=== PATIENT | female | born 1960 | race Caucasian/White ===

== ENCOUNTER 2017-04-28 16:16 | Emergency (ER) | payer OTHER ==
[~2017-04-28] VITALS: Ht 167.6 cm; Wt 78.5 kg
[~2017-04-28 16:16] MED LIST: AMITRIPTYLINE H10 MG PO; ASPIR 8181 MG PO; BENTYL20 MG PO; DIAZEPAM5 MG PO; FLAGYL500 MG PO; GABAPENTIN100 MG PO; METOPROLOL TART50 MG PO; NEXIUM20 MG PO; NEXIUM40 MG PEG; NORCO 10-325 T1 EACH PO; OXYBUTYNIN CHLOR5 MG PO; PRAVASTATIN SOD40 MG PO; TIZANIDINE HCL4 MG PO; ZOFRAN ODT4 MG; ZOFRAN4 MG PO
--- OUTSIDE RECORDS SUMMARY | 2017-04-28 16:20 | XMS REPORT ---
Author Author [facility] Address Unknown Phone Unavailable Care Team Providers Care Chemical Radiation Technician Name Role Phone FABIAN TORRES Unavailable Unavailable Problems This patient has no known problems. Allergies, Adverse Reactions, Alerts This patient has no known allergies or adverse reactions. Medications This patient has no known medications. Results Test Description Test Time Test Comments Text Results Atomic Results Result Comments PELVIS AP 1-2 VIEWS [place] [address] Patient Name: MARINA MYRICK MR #: [id number] : 1960 Age/Sex: 56/F Req #: [id number] [facility] Physician: Ordered by: FELISHA NUR SMELTING ENGINEER Report # : [id number] Location: ER Room/Bed: Procedure: 0928 -[id number] DX/PELVIS AP 1-2 VIEWS Exam Date: 12/24/16 Exam Time: 1450 REPORT STATUS: Signed PROCEDURE: X-RAY PELVIS, AP VIEW COMPARISON: None. INDICATIONS: PAINFUL TO WALK, PAIN IN PELVIS FINDINGS: Normal mineralization. No acute, displaced fractures or dislocations. Sacral arches are preserved. Joint spaces are well-preserved. Pelvic phleboliths. Soft tissues are otherwise unremarkable. CONCLUSION: No acute abnormalities. Celestino Carr M.D. Dictated by: Celestino Carr M.D. on 12/24/2016 at 15:43 Electronically approved by: Celestino Carr M.D. on 12/24/2016 at 15:43 Dictated By: CELESTINO CARR MD 42 Transcribed By: HASMUKH on 12/24/161542 COPY TO: FELISHA NUR NP SACRUM COCCYX [place] [address] Patient Name: MARINA MYRICK MR #: [id number] : 1960 Age/Sex: 56/F Req #: [id number] [facility] Physician: Ordered by: FELISHA NUR NP Report # : [id number] Location: ER Room/Bed: Procedure: 0928 -0059 DX/SACRUM COCCYX Exam Date: 12/24/16 Exam Time: 1450 REPORT STATUS: Signed PROCEDURE: SACRUM T COCCYX INDICATION: Pain, lower back, painful to walk COMPARISON: [facility], CT, CT ABDOMEN/PELVIS W, 04/30/2016, 13:14. FINDINGS: Normal mineralization. No acute, displaced fracture or dislocation. Sacral arches are preserved. Facet hypertrophy. L5-S1. No lytic or blastic lesions. Pelvic phleboliths. Visualized joints are grossly unremarkable. CONCLUSION: 1. No acute abnormalities. 2. Facet hypertrophy. L5- S1. Celestino Carr M.D. Dictated by: Celestino Carr M.D. on 12/24/2016 at 15:45 Electronically approved by: Celestino Carr M.D. on 12/24/2016 at 15:45 Dictated By: CELESTINO CARR MD 1545 Transcribed By: HASMUKH on 12/24/16 154 COPY TO: FELISHA NUR NP CHEST 2 VIEWS [place] [address] Patient Name: MARINA MYRICK MR #: [id number] : 1960 Age/Sex: 56/F Req #: [id number] Adm Physician: Ordered by: FABIAN TORRES MD Report #: [id number] Location: ER Room/Bed: Procedure: [id number] 0042 DX/CHEST 2 VIEWS Exam Date: 12/24/16 Exam Time : 1245 REPORT STATUS: Signed PROCEDURE: CHEST 2 VIEWS TECHNIQUE: PA and lateral chest INDICATION: Cough COMPARISON: None. FINDINGS : Paucity of interstitial markings in the upper lung zones with mild symmetric hyperinflation. No focal airspace disease. No pleural effusions. Normal heart size. Intact skeleton. Cervical spine fusion hardware. CONCLUSION: Emphysema. No evidence of pneumonia. Dictated by: Jodee Selby M.D. on 12/24/2016 at 14:00 Electronically approved by : Jodee Selby M.D. on 12/24/2016 at 14:00 Dictated By : JODEE SELBY MD 1400 Transcribed By: HASMUKH on 12/24/16 1400 COPY TO: FABIAN TORRES MD [facility] RIGHT COMPLETE [place] [address] Patient Name: MARINA MYRICK MR #: [id number] : 1960 Age/Sex: 56/F Req #: [id number] Adm Physician: Ordered by: FABIAN TORRES MD Report #: [id number] Location: ER Room/Bed: Procedure: [id number] 0034 DX/FOOT RIGHT COMPLETE Exam Date: 12/24/16 Exam Time: 1245 REPORT STATUS: Signed PROCEDURE: FOOT RIGHT COMPLETE TECHNIQUE: AP, lateral and oblique views left foot INDICATION: Hit left foot COMPARISON: None. FINDINGS: The left foot is intact and in anatomic alignment. Joint spaces are normal. Regional soft tissues are normal. No foreign bodies. CONCLUSION: No acute abnormality. Dictated by: Jodee Selby M.D. on 12/24/2016 at 13:59 Electronically approved by: Jodee Selby M.D. on 12/24/2016 at 13:59 Dictated By: JODEE SELBY MD 3444 Transcribed By: HASMUKH on 12/24/16 1350 COPY TO: FABIAN TORRES MD
[2017-04-28] MEDS ORDERED: ONDANSETRON HCL INJ 2 MG/ML VIAL IV STA (16:22)
[2017-04-28] MEDS ORDERED: SODIUM CHLORIDE 0.9% 1000ML 1,000 ML IV STA (16:22)
[2017-04-28] MEDS ORDERED: DIATRIZOATE MEGL/DIATRIZOA SOD 30 ML BTL PO ONE (17:04)
--- NOTE | 2017-04-28 18:16 | Diagnostic Imaging Report ---
PROCEDURE: A single AP view of the chest. COMPARISON: Chest radiograph 09/08/2016 INDICATIONS: ABDOMINAL PAIN, NAUSEA FINDINGS: Lines/tubes: None. Lungs: The lungs are well inflated and clear. There is no evidence of pneumonia or pulmonary edema. Pleura: There is no pleural effusion or pneumothorax. Heart and mediastinum: The heart and the mediastinum are unremarkable. Bones: No acute bony abnormality. Partially visualized lower cervical fusion hardware. Upper abdomen: No free air under the diaphragm. IMPRESSION: No acute cardiopulmonary disease. Dictated by: Mahamed Dawson M.D. on 04/28/2017 at 18:25 Electronically approved by: Mahamed Dawson M.D. on 04/28/2017 at 18:25
[2017-04-28] MEDS ORDERED: ONDANSETRON HCL INJ 2 MG/ML VIAL ONE (22:09)
[2017-04-28] MEDS ORDERED: SODIUM CHLORIDE 0.9% 1000ML 1,000 ML ONE (22:09)
[2017-04-28 22:17] LABS: BILIRUBIN,URINE NEGATIVE (NEGATIVE); CLARITY,URINE CLEAR (CLEAR); COLOR,URINE YELLOW (YELLOW); KETONES,URINE NEGATIVE (NEGATIVE); LEUKOCYTE ESTERASE ,URINE NEGATIVE (NEGATIVE); NITRITE,URINE NEGATIVE (NEGATIVE); PROTEIN,URINE DIPSTICK NEGATIVE (NEGATIVE); URINE UROBILINOGEN 0.2 mg/dL (0.2 - 1)
[2017-04-28 22:17] LABS: BASOPHILS % 0.6 % (0.0-1.0); EOSINOPHILS # (AUTO) 0.1 (0.0-0.4); EOSINOPHILS % 1.9 % (0.0-6.0); HEMATOCRIT 40.3 % (34.2-44.1); HEMOGLOBIN 12.7 g/dL (12.0-16.0); LYMPHOCYTES # (AUTO) 2.2 (1.0-3.2); LYMPHOCYTES % 34.9 % (18.0-39.1); MEAN CORPUSCULAR HEMOGLOBIN 29.3 pg (28-32); MEAN CORPUSCULAR HGB CONC 31.5 g/dL (31-35); MEAN CORPUSCULAR VOLUME 92.9 fL (81-99); MONOCYTES # (AUTO) 0.7 (0.2-0.8); MONOCYTES % 10.8 % (4.4-11.3); NEUTROPHILS # (AUTO) 3.2 (2.1-6.9); PLATELET COUNT 299 x10e3/uL (140-360); RED BLOOD COUNT 4.34 x10e6/uL (3.6-5.1); RED CELL DISTRIBUTION WIDTH 14.1 % (11.7-14.4)
[2017-04-28 22:19] LABS: EPITHELIAL CELLS,URINE FEW /LPF; MUCUS,URINE FEW (RARE); RBC,URINE 0-5 /HPF (0-5); WBC,URINE (MAN) 0-5 /HPF (0-5)
[2017-04-28 22:23] LABS: INR 0.86; PROTHROMBIN TIME 12.1 seconds (11.9-14.5)
[2017-04-28 22:24] LABS: PARTIAL THROMBOPLASTIN TIME 31.6 seconds (23.8-35.5)
[2017-04-28 22:33] LABS: ALANINE AMINOTRANSFERASE 33 IU/L (0-55); ALBUMIN 3.8 g/dL (3.5-5.0); ALBUMIN/GLOBULIN RATIO 0.9 (0.8-2.0); ALKALINE PHOSPHATASE 117 IU/L (40-150); ANION GAP 13.6 mmol/L (8-16); BLOOD UREA NITROGEN 8 mg/dL (7-26); BUN/CREATININE RATIO 10 (6-25); CALCIUM 9.4 mg/dL (8.4-10.2); CARBON DIOXIDE 30 mmol/L (22-29); CHLORIDE 101 mmol/L (98-107); CREATINE KINASE 30 IU/L (29-168); CREATININE, SERUM 0.77 mg/dL (0.57-1.11); EST GLOMERULAR FILTRATION RATE > 60 ML/MIN (60-); GLUCOSE 93 mg/dL (74-118); POTASSIUM 4.6 mmol/L (3.5-5.1); SODIUM 140 mmol/L (136-145)
[2017-04-28 22:52] LABS: THYROID STIMULATING HORMONE 2.331 uIU/mL (0.350-4.940); TROPONIN I < 0.001 ng/mL (0-0.300)
[2017-04-28] MEDS ORDERED: IOPAMIDOL 370 MG/ML 200 ML INFUS..BTL INJ ONE (23:12)
[2017-04-28] MEDS ORDERED: SODIUM CHLORIDE 0.9% 50ML 50 ML ONE (23:12)
--- NOTE | 2017-04-28 23:42 | Diagnostic Imaging Report ---
EXAM: CT ABDOMEN AND PELVIS with IV CONTRAST DATE: 04/28/2017 4:46 PM Time stamp on Exam: 2316 hours INDICATION: Lower abdominal pain, nausea, vomiting, diarrhea COMPARISON: None TECHNIQUE: The abdomen and pelvis were scanned using a multidetector helical scanner. Coronal and sagittal reformations were obtained. Routine protocol performed. IV Contrast: 100 cc Isovue-370 Oral Contrast: Gastrografin CTDIvol has been reviewed. It is below the limits set by the Radiation Protocol Committee (RPC). FINDINGS: LOWER THORAX: No consolidations. Right lower lobe paraseptal blebs. LIVER: No masses BILIARY: The gallbladder is unremarkable. No ductal dilation. SPLEEN: No masses PANCREAS: Fatty replacement of the head. ADRENALS: No nodules KIDNEYS: Symmetric perfusion. No enhancing masses. No hydronephrosis. GI TRACT: No distention, wall thickening or evidence of obstruction. Small sliding hiatal hernia. No evidence of appendicitis. VESSELS: Mild atherosclerotic changes of the abdominal aorta without aneurysm. PERITONEUM/RETROPERITONEUM: No free air or fluid LYMPH NODES: No lymphadenopathy REPRODUCTIVE ORGANS: The uterus and ovaries are not visualized. BLADDER: Unremarkable SOFT TISSUES: Unremarkable BONES: No suspicious bone lesions. IMPRESSION: No acute findings. No bowel obstruction. Signed by: Dr. Carole Ann M.D. on 04/28/2017 11:38 PM
[2017-04-29 00:32] VITALS: BP 114/64
== END 2017-04-29 00:49 | disposition home or self-care (01) ==
LOC: ER 16:16
DX: R11.2 Nausea with vomiting, unspecified (principal); R10.33 Periumbilical pain; R10.32 Left lower quadrant pain; R10.31 Right lower quadrant pain; I10 Essential (primary) hypertension; J44.9 Chronic obstructive pulmonary disease, unspecified; M79.7 Fibromyalgia; K21.9 Gastro-esophageal reflux disease without esophagitis
CPT/HCPCS: 36415; 71010; 74177; 80053; 81001; 82550; 82553; 83880; 84443; 84484; 85025; 85610; 85730; 87086; 87400; 99284; J2405; J7030; Q9967; 71045

== ENCOUNTER 2018-09-10 13:51 | Observation (INO) | payer OTHER ==
[~2018-09-10] VITALS: Ht 167.6 cm; Wt 60.8 kg
[2018-09-10] MEDS ORDERED: MECLIZINE HCL 12.5 MG TAB PO NR (14:00)
[2018-09-10] MEDS ORDERED: SODIUM CHLORIDE 0.9% 1000ML 1,000 ML IV STA (14:00)
--- NOTE | 2018-09-10 14:15 | NUR ---
pt just stated, "i smoke weed at home for nausea." last time she smoked was yesterday. celsa wheeler np and dr. guerrero informed
[2018-09-10 14:36] LABS: BASOPHILS % 0.6 % (0.0-1.0); EOSINOPHILS # (AUTO) 0.1 (0.0-0.4); EOSINOPHILS % 2.1 % (0.0-6.0); HEMATOCRIT 37.8 % (34.2-44.1); HEMOGLOBIN 12.2 g/dL (12.0-16.0); LYMPHOCYTES # (AUTO) 1.9 (1.0-3.2); LYMPHOCYTES % 41.1 % (18.0-39.1); MEAN CORPUSCULAR HEMOGLOBIN 30.9 pg (28-32); MEAN CORPUSCULAR HGB CONC 32.3 g/dL (31-35); MEAN CORPUSCULAR VOLUME 95.7 fL (81-99); MONOCYTES # (AUTO) 0.6 (0.2-0.8); MONOCYTES % 12.1 % (4.4-11.3); NEUTROPHILS # (AUTO) 2.1 (2.1-6.9); NEUTROPHILS % 43.9 % (38.7-80.0); PLATELET COUNT 192 x10e3/uL (140-360); RED BLOOD COUNT 3.95 x10e6/uL (3.6-5.1); RED CELL DISTRIBUTION WIDTH 12.6 % (11.7-14.4)
--- NOTE | 2018-09-10 14:41 | Diagnostic Imaging Report ---
Exam: Head CT without contrast History: General weakness, dizziness Comparison studies: None Technique: Axial images were obtained from the skull base to the vertex. Coronal and sagittal images reconstructed from the axial data. Dose modulation, iterative reconstruction, and/or weight based adjustment of the mA/kV was utilized to reduce the radiation dose to as low as reasonably achievable. Radiation dose: Total DLP: ... mGy*cm. Estimated effective dose: DLP x 0.015 Intravenous contrast: None Findings: Scalp: No abnormalities. Bones: No fractures, blastic or lytic lesions. Brain sulci: Appropriate for age. Ventricles: Normal in size and configuration. No hydrocephalus. Extra-axial spaces: No masses, no fluid collection. Parenchyma: No abnormal densities. No masses, acute hemorrhage, acute or chronic vascular insults. Sellar/suprasellar region: No abnormalities. Craniocervical junction: Patent foramen magnum. No Chiari one malformation. Included paranasal sinuses: Clear. Middle ear mastoid cavities: Clear. Incidental findings: Atherosclerotic calcifications in the carotid siphons. IMPRESSION: No acute intracranial abnormalities. Signed by: Dr. Chente Andersen M.D. on 09/10/2018 2:37 PM
--- NOTE | 2018-09-10 14:48 | NUR ---
pt requesting pain medication for head/neck pain. celsa wheeler,formula checker informed
[2018-09-10 15:18] LABS: ALANINE AMINOTRANSFERASE 14 IU/L (0-55); ALBUMIN 3.6 g/dL (3.5-5.0); ALBUMIN/GLOBULIN RATIO 1.1 (0.8-2.0); ALKALINE PHOSPHATASE 82 IU/L (40-150); ANION GAP 13.9 mmol/L (8-16); BLOOD UREA NITROGEN 7 mg/dL (7-26); BUN/CREATININE RATIO 9 (6-25); CALCIUM 9.6 mg/dL (8.4-10.2); CARBON DIOXIDE 30 mmol/L (22-29); CHLORIDE 103 mmol/L (98-107); CREATINE KINASE 45 IU/L (29-168); CREATININE, SERUM 0.78 mg/dL (0.57-1.11); EST GLOMERULAR FILTRATION RATE > 60 ML/MIN (60-); GLUCOSE 77 mg/dL (74-118); POTASSIUM 3.9 mmol/L (3.5-5.1); SODIUM 143 mmol/L (136-145)
[2018-09-10 16:02] LABS: BILIRUBIN,URINE NEGATIVE (NEGATIVE); CLARITY,URINE CLOUDY (CLEAR); COLOR,URINE YELLOW (YELLOW); KETONES,URINE NEGATIVE (NEGATIVE); LEUKOCYTE ESTERASE ,URINE NEGATIVE (NEGATIVE); NITRITE,URINE NEGATIVE (NEGATIVE); PROTEIN,URINE DIPSTICK NEGATIVE (NEGATIVE); URINE UROBILINOGEN 0.2 mg/dL (0.2 - 1)
[2018-09-10 16:03] LABS: PREGNANCY TEST, URINE NEGATIVE (NEGATIVE)
[2018-09-10 16:06] LABS: AMPHETAMINES SCREEN,URINE NEGATIVE (NEGATIVE); PHENCYCLIDINE SCREEN,URINE NEGATIVE (NEGATIVE)
[2018-09-10 16:07] LABS: BENZODIAZEPINES SCREEN,URINE POSITIVE (NEGATIVE)
[2018-09-10 16:21] LABS: ACETAMINOPHEN < 3 ug/mL (10-30); SALICYLATE < 5.0 mg/dL (0-30)
[2018-09-10 16:24] LABS: BACTERIA,URINE RARE /HPF; WBC,URINE (MAN) 0-5 /HPF (0-5)
[2018-09-10 16:25] LABS: AMORPHOUS SEDIMENT,URINE MANY (FEW); EPITHELIAL CELLS,URINE RARE /LPF
[2018-09-10] MEDS ORDERED: ONDANSETRON HCL INJ 2MG/ML 2ML 2 MG/ML VIAL IV NR (16:30)
[2018-09-10] MEDS ORDERED: ASPIRIN 325 MG TAB EC PO NR (17:15)
[2018-09-10] MEDS ORDERED: ONDANSETRON HCL INJ 2MG/ML 2ML 2 MG/ML VIAL IV PRN (17:15)
[2018-09-10] MEDS ORDERED: SODIUM CHLORIDE 0.9% 1000ML 1,000 ML IV ONE (17:15)
--- NOTE | 2018-09-10 17:46 | NUR ---
RECEIVED REPORT FROM REUBEN IN ER. AWAITING FOR PT TO ARRIVE TO FLOOR
[2018-09-10] MEDS: HYDROCODONE/APAP 10MG-325MG TAB PO PRN ×2 (18:00→22:15)
[2018-09-10] MEDS ORDERED: NAMENDA10 MG (18:10)
[2018-09-10] MEDS ORDERED: ARICEPT5 MG PO (18:10)
[2018-09-10] MEDS ORDERED: PANTOPRAZOLE SO40 MG PO (18:10)
[2018-09-10] MEDS ORDERED: SOMA350 MG PO (18:10)
[2018-09-10] MEDS ORDERED: TYLENOL WITH C1 EAC1 (18:10)
[2018-09-10] MEDS ORDERED: CARVEDILOL3.125 MG PO (18:10)
[2018-09-10] MEDS ORDERED: CETIRIZINE HCL10 MG (18:10)
[2018-09-10] MEDS ORDERED: ULTRAM 50MG50 MG PO (18:10)
[2018-09-10] MEDS ORDERED: AMITRIPTYLINE H25 MG PO (18:10)
--- NOTE | 2018-09-10 19:30 | Diagnostic Imaging Report ---
MRI BRAIN WO HISTORY: General weakness, ataxia COMPARISON: Head CT 09/10/2018 TECHNIQUE: Sagittal T2, axial T2, axial T1, axial T2/FLAIR, axial gradient echo (or susceptibility weighted), coronal T2/FLAIR, and axial diffusion weighted MR images of the brain were obtained without contrast. DISCUSSION: Scalp/bone marrow: Unremarkable. Brain sulci: Appropriate for patient's age. Ventricles: Normal in size and configuration. No hydrocephalus. Extra-axial spaces: No masses or fluid collections. Parenchyma: A few small T2/FLAIR hyperintense foci in the right ferris radiata are likely chronic microvascular ischemic changes. Otherwise, no mass, hemorrhage, or acute vascular insults. Vessels: Normal flow voids in major arteries and veins. Sellar/Suprasellar region: No abnormalities. Craniocervical junction: No abnormalities. Incidental findings: ACDF changes at C4 are partially visualized. IMPRESSION: 1. No acute intracranial abnormalities. 2. Minimal supratentorial chronic microvascular ischemic change. Signed by: Dr. Adeel Dickerson M.D. on 09/10/2018 7:27 PM
[2018-09-10 19:44] VITALS: BP 117/68
--- NOTE | 2018-09-10 19:50 | NUR ---
Patient received via stretcher from ER. AAO x 3. Admission history obtained . Initial Physical assessment performed. Patient had complaints of pain ( 4/10) to the back region of her neck. Medication would be administered per eMAR. IVF infusing at 100 cc/hr. Patient oriented to room , call light and plan of care. Patient instructed to call for assistance when needed and whenever she wants to go to the bathroom. Patient verbalized understanding. Fall precautions implemented. Call light within reach.
[2018-09-10 20:00] VITALS: BP 117/68
[2018-09-10] MEDS ORDERED: ATORVASTATIN CA20 MG PO (20:37)
[2018-09-11] VITALS (9 sets, daily range): BP systolic 96–125; BP diastolic 52–63
--- NOTE | 2018-09-11 01:00 | NUR ---
Blood specimen sent to lab for analysis of cardiac enzymes.
[2018-09-11] MEDS: HYDROCODONE/APAP 10MG-325MG TAB PO PRN ×4 (04:33→19:35)
[2018-09-11 05:35] LABS: CREATINE KINASE MB 0.3 ng/mL (0-5.0)
[2018-09-11 05:41] LABS: BASOPHILS % 0.5 % (0.0-1.0); EOSINOPHILS # (AUTO) 0.1 (0.0-0.4); EOSINOPHILS % 2.4 % (0.0-6.0); HEMATOCRIT 34.2 % (34.2-44.1); HEMOGLOBIN 11.1 g/dL (12.0-16.0); LYMPHOCYTES # (AUTO) 1.7 (1.0-3.2); LYMPHOCYTES % 46.6 % (18.0-39.1); MEAN CORPUSCULAR HEMOGLOBIN 31.1 pg (28-32); MEAN CORPUSCULAR HGB CONC 32.5 g/dL (31-35); MEAN CORPUSCULAR VOLUME 95.8 fL (81-99); MONOCYTES # (AUTO) 0.4 (0.2-0.8); MONOCYTES % 10.6 % (4.4-11.3); NEUTROPHILS # (AUTO) 1.5 (2.1-6.9); NEUTROPHILS % 39.6 % (38.7-80.0); PLATELET COUNT 164 x10e3/uL (140-360); RED BLOOD COUNT 3.57 x10e6/uL (3.6-5.1); RED CELL DISTRIBUTION WIDTH 12.5 % (11.7-14.4)
[2018-09-11 06:05] LABS: ALANINE AMINOTRANSFERASE 11 IU/L (0-55); ALBUMIN/GLOBULIN RATIO 1.2 (0.8-2.0); ALKALINE PHOSPHATASE 71 IU/L (40-150); ANION GAP 10.4 mmol/L (8-16); BLOOD UREA NITROGEN 6 mg/dL (7-26); BUN/CREATININE RATIO 8 (6-25); CARBON DIOXIDE 27 mmol/L (22-29); CHLORIDE 108 mmol/L (98-107); CREATININE, SERUM 0.71 mg/dL (0.57-1.11); EST GLOMERULAR FILTRATION RATE > 60 ML/MIN (60-); GLUCOSE 86 mg/dL (74-118); POTASSIUM 4.4 mmol/L (3.5-5.1); SODIUM 141 mmol/L (136-145)
--- NOTE | 2018-09-11 06:44 | NUR ---
Walking rounds done. Shift report given to oncoming nurse.
--- NOTE | 2018-09-11 07:33 | NUR ---
RECEIVED PATIENT RESTING IN BED NO SIGNS OF DISTRESS AT THIS TIME. BED LOW, WHEELS LOCKED, SIDE RAILS X2. CALL LIGHT IN REACH WILL CONTINUE TO MONITOR PATIENT.
[2018-09-11] MEDS: ASPIRIN 81 MG ENTERIC COATED PO SCH (08:29)
[2018-09-11 09:26] LABS: CREATINE KINASE 41 IU/L (29-168)
[2018-09-11] MEDS ORDERED: ACETAMINOPHEN 325 MG TAB PO PRN (09:45)
[2018-09-11] MEDS ORDERED: HYDRALAZINE HCL 20 MG/ML VIAL IV PRN (09:45)
--- NOTE | 2018-09-11 09:45 | NUR ---
PATIENT A/O X3, EVEN RESPIRATIONS ON RA. BOWEL SOUNDS ACTIVE, SKIN INTACT, NO EDEMA. PATIENT AMBULATES WITH ASSISTANCE. LEFT AC 20 GAUGE IV WITH IVF @ 125 CC/HR. VITAL SIGNS STABLE NO SIGNS OF DISTRESS. CALL LIGHT WITHIN REACH. WILL CONTINUE TO MONITOR PATIENT.
[2018-09-11] MEDS: AMITRIPTYLINE HCL 25 MG TAB PO SCH ×2 (10:00→17:38)
[2018-09-11] MEDS: TIZANIDINE HCL 4 MG TAB PO SCH ×3 (10:23→21:19)
[2018-09-11] MEDS: DIAZEPAM 5 MG TAB PO SCH (10:23)
[2018-09-11] MEDS: OXYBUTYNIN CHLORIDE 5 MG TAB PO SCH ×2 (10:23→17:33)
[2018-09-11] MEDS: PANTOPRAZOLE SOD 40 MG TABEC PO SCH (10:23)
[2018-09-11] MEDS: MEMANTINE 10 MG TAB PO SCH (10:23)
[2018-09-11] MEDS: GABAPENTIN 100 MG CAP PO SCH ×3 (10:23→21:19)
[2018-09-11] MEDS: CARVEDILOL 3.125 MG TAB PO SCH ×2 (10:23→16:22)
[2018-09-11] MEDS: METHYLPREDNISOLONE SOD SUCC 125 MG/2ML VIAL IV SCH ×2 (14:11→21:10)
[2018-09-11] MEDS: SODIUM CHLORIDE 0.9% 1000ML 1,000 ML IV SCH ×2 (14:11→22:00)
[2018-09-11] MEDS: PROMETHAZINE 25MG/ NS 50ML (IV) IV SCH ×2 (14:11→21:00)
[2018-09-11] MEDS: VALPROATE SOD INJ 500 MG in SODIUM CHLORIDE 0.9% 100 ML 100 ML IV SCH ×2 (14:50→19:43)
[2018-09-11] MEDS: DONEPEZIL HCL 5 MG TAB PO SCH (21:19)
[2018-09-11] MEDS: ATORVASTATIN 20 MG TAB PO SCH (21:19)
--- NOTE | 2018-09-11 21:55 | NUR ---
Assessment done.no resp.distress.pain voiced 10/05.pain medication given.voided in the bed side commode.iv left ac is patent.bed locked and in lowest position.phone and call light within reach.informed to call for assistance as needed.
--- NOTE | 2018-09-11 22:29 | Consultation ---
DATE OF CONSULTATION: 09/11/2018 Neurology Consult Note HISTORY OF PRESENT ILLNESS: Ms. Carrillo is a 57-year-old right-hand dominant woman with past medical history significant for hypertension, hyperlipidemia, chronic pain secondary to osteoarthritis, and a prior history of migraines, admitted to [facility] on September 10, 2018, with a severe headache and vertigo. The Neurology Service is consulted for recommendations regarding further evaluation and treatment of status migrainosus. Ms. Carrillo describes her headache as follows. The pain begins over the back of the neck and radiates anteriorly to the retro-orbital region. The pain is described as pounding and is rated as 9/10. Associated with the headache are photophobia, phonophobia, and dizziness, which is further described as a vertiginous sensation, especially with moving towards the right. The patient does not report an aura, nausea, or vomiting, visual disturbance, dysarthria, aphasia, weakness, numbness, tingling, poor balance, impairment of gait, or worsening confusion associated with the headache. The headache as described above began approximately 3 days ago. The associated symptoms began at the same time with the exception of vertigo, which began approximately 12 hours after the other symptoms. Ms. Carrillo has taken multiple oral medications over the past 3 days in an effort to assuage her headache. Some medications the patient has taken include: Tylenol No. 3, Galvin, Soma, Advil, Aleve, and Tylenol Extra Strength. The patient reports no improvement in any of her symptoms with any of these medications. Ms. Carrillo does endorse a prior history of migraines. However, this is the first migraine she has experienced in "a long time." Ms. Carrillo is not taking a prophylactic medication for the prevention of migraines. The patient does have a prescription for amitriptyline 50 mg by mouth at bedtime daily, but this is for chronic insomnia. REVIEW OF SYSTEMS: Memory impairment (chronic), confusion (chronic), neck pain (chronic), headache, photophobia, phonophobia, and dizziness, which is further described as a vertiginous sensation. PAST MEDICAL HISTORY: Hypertension, hyperlipidemia, osteoarthritis, prior history of migraines, dementia, degenerative disk disease with chronic pain in the cervical spine. PAST SURGICAL HISTORY: Cervical spine fusion, right knee surgery, right ulnar nerve transposition, right carpal tunnel release, hysterectomy with appendectomy. PAST HOSPITALIZATIONS: Surgeries/procedures as listed, numerous hospitalizations. FAMILY MEDICAL HISTORY: Unknown. SOCIAL HISTORY: Ms. Carrillo is . She has been on disability since 1990. The patient does report a prior history of tobacco use, but quit smoking cigarettes 12 years ago. The patient drinks 1 beer every 2-3 months. She uses marijuana at least 3-4 times per week if not daily for the treatment of chronic pain and nausea and poor appetite. HOME MEDICATIONS: Reviewed. Please see the list of home medications available in the electronic medical record. HOSPITAL MEDICATIONS: Reviewed. Please see the list of hospital medications available in the electronic medical record. ALLERGIES: NO KNOWN DRUG ALLERGIES. NO KNOWN FOOD ALLERGIES. NO KNOWN ALLERGIES TO LATEX. NO KNOWN ALLERGIES TO IODINE OR OTHER CONTRAST MATERIALS. PHYSICAL EXAMINATION: VITAL SIGNS: Height 66 inches, weight 134 pounds, BMI 21.6 kg/m2, blood pressure 97/52 mmHg, pulse 85 beats per minute, respiratory rate 16 breaths per minute, and oxygen saturation 97% on room air. GENERAL: The patient is awake and alert, cbfy-tq-esawflaq distress. HEENT: Normocephalic, atraumatic. Pupils are pinpoint. Moist mucous membranes. NECK: Supple. No appreciable thyromegaly. No appreciable carotid bruits. CARDIOVASCULAR: S1, S2, regular rate and rhythm. No murmurs, rubs, or gallops. RESPIRATORY: Clear to auscultation bilaterally. No wheezes, rhonchi, or rales. EXTREMITIES: The skin is warm and dry. No clubbing, cyanosis, or edema. The posterior tibial and dorsalis pedis pulses are 2+ and symmetric. SKIN: No rashes or lesions. NEUROLOGIC: Memory/attention: The patient is awake and alert, oriented to person, place, time, and situation. Cranial Nerves: Cranial nerve I - not tested. Cranial nerve II, III, IV, and - pupils are pinpoint. Extraocular movements intact. No nystagmus. Cranial nerve V - sensation to light touch is intact in the bilateral V1 through V3 distributions. Strength of the temporalis and masseter muscles is within normal limits. Cranial nerve VII - the face is symmetric as are all facial movements. Strength is within normal limits. Cranial nerve VIII - hearing is intact to finger rub bilaterally. Cranial nerve IX, X - the soft palate elevates equally and symmetrically. Cranial nerve XI - normal strength of the bilateral sternocleidomastoid and trapezius muscles. Cranial nerve XII - the tongue protrudes midline and moves symmetrically from bmgm-ve-qcng. Strength: Bulk is normal. Strength is 5/5 in the bilateral deltoids, biceps, triceps, wrist flexors and extensors, finger flexors and extensors, intrinsic hand muscles, hip flexors, knee flexors and extensors, ankle dorsiflexion and plantar flexion, and intrinsic foot muscles. Tone is normal. DTRs: Deep tendon reflexes are 1+ and symmetric at the triceps, biceps, brachioradialis, patellas, and Achilles. Plantar responses are flexor bilaterally. Sensation: Sensation is intact to light touch in both arms and both legs. Cerebellar: Lepnui-ghyw-ivowjq and heel-galvez movements are intact without dysmetria or other impairment, except as follows: Dysmetria in the right arm. Gait: Deferred. Speech: Spontaneous speech is normal without appreciable dysarthria or aphasia. Repetition is intact. Involuntary movements: None. Pronator Drift: None. LABORATORY DATA: Most recent comprehensive metabolic panel is significant for a chloride of 108, BUN of 6, total protein of 5.6, and albumin of 3.0. Cardiac enzymes are negative x3. Most recent CBC with differential and platelets reveals a white blood cell count of 3.69 with a right shift with 39.6% neutrophils, 46.6% lymphocytes, 10.6% monocytes, 2.4% eosinophils, and 0.5% basophils. The hemoglobin and hematocrit are 11.1 and 34.2, respectively. The platelet count is 164. A urinalysis was significant for cloudy urine with many amorphous sediments. A urine drug screen was positive for opiates, benzodiazepines, and cannabinoids. Blood alcohol level less than 10.0. Serum salicylate level less than 5.0. Serum acetaminophen level less than 3. Urine culture reveals no growth at 18 to 24 hours. DIAGNOSTIC STUDIES: Electrocardiogram of 09/10/2018: Normal sinus rhythm at [address] of the brain without contrast of 09/10/2018: On my review, there is no evidence of recent large territorial ischemia, hemorrhage, mass, or mass effect. Cerebral volumes appear appropriate for age. There are findings suspicious for mild chronic small-vessel ischemic disease. MRI of the brain without contrast of 09/10/2018: On my review, there is no evidence of recent or remote large territorial ischemia, hemorrhage, mass, or mass effect. Cerebral volumes are appropriate for age. There are a few scattered T2/FLAIR hyperintense foci within the supratentorial white matter compatible with mild chronic small vessel ischemic disease. Bilateral carotid artery ultrasound with Doppler of 09/10/2018: There is no hemodynamically significant stenosis in either carotid artery system. Echocardiogram of 09/11/2018: Ejection fraction 50%. Trace mitral regurgitation. ASSESSMENT AND PLAN: Ms. Carrillo is a 57-year-old right-hand dominant woman with past medical history as detailed, admitted to [facility] on September 10, 2018, with a severe headache and vertigo. The patient's neurological examination is nonfocal. Her laboratory data and other diagnostic studies have been reviewed and are documented above. Ms. Carrillo has migraine without aura, not intractable, with status migrainosus. RECOMMENDATIONS: Are as follows: 1. Treatment with intravenous fluids will be resumed. Ms. Carrillo will be prescribed normal saline at 125 mL/hr. 2. The patient will be treated with promethazine 25 mg intravenously every 6 hours x2 doses. 3. The patient will be treated with methylprednisolone 125 mg intravenously every 6 hours x2 doses. 4. The patient will be treated with valproate 500 mg intravenously every 6 hours x2 doses. 5. The above medications, when given in combination, are often an effective treatment for status migrainosus. Following treatment with 2 cycles of medications, the patient's migraine should be significantly improved and/or resolved. 6. Defer treatment of the remaining medical comorbidities to the primary and other services following the patient. Thank you for this consultation. I will continue to follow the patient while she remains in the hospital. TIME SPENT: 50 minutes. Melinda Bhandari MD CP/EDY /[id number] MTDNabila
--- NOTE | 2018-09-12 03:20 | NUR ---
Blood les and sent to the lab.
[2018-09-12] MEDS: HYDROCODONE/APAP 10MG-325MG TAB PO PRN ×5 (03:22→21:04)
[2018-09-12 03:30] LABS: HEMATOCRIT 37.6 % (34.2-44.1); HEMOGLOBIN 12.2 g/dL (12.0-16.0); LYMPHOCYTES # (AUTO) 0.6 (1.0-3.2); MEAN CORPUSCULAR HEMOGLOBIN 30.8 pg (28-32); MEAN CORPUSCULAR HGB CONC 32.4 g/dL (31-35); MEAN CORPUSCULAR VOLUME 94.9 fL (81-99); MONOCYTES % 0.8 % (4.4-11.3); NEUTROPHILS # (AUTO) 4.6 (2.1-6.9); NEUTROPHILS % 87.6 % (38.7-80.0); PLATELET COUNT 194 x10e3/uL (140-360); RED BLOOD COUNT 3.96 x10e6/uL (3.6-5.1); RED CELL DISTRIBUTION WIDTH 12.2 % (11.7-14.4)
[2018-09-12 03:45] LABS: ANION GAP 15.2 mmol/L (8-16); BLOOD UREA NITROGEN 5 mg/dL (7-26); BUN/CREATININE RATIO 7 (6-25); CALCIUM 9.5 mg/dL (8.4-10.2); CARBON DIOXIDE 24 mmol/L (22-29); CHLORIDE 105 mmol/L (98-107); CREATININE, SERUM 0.73 mg/dL (0.57-1.11); EST GLOMERULAR FILTRATION RATE > 60 ML/MIN (60-); GLUCOSE 160 mg/dL (74-118); MAGNESIUM 1.9 MG/DL (1.3-2.1); POTASSIUM 4.2 mmol/L (3.5-5.1); SODIUM 140 mmol/L (136-145)
[2018-09-12] MEDS: SODIUM CHLORIDE 0.9% 1000ML 1,000 ML IV SCH ×3 (03:46→21:04)
--- NOTE | 2018-09-12 06:50 | NUR ---
Bed side shift report given to the oncoming RN.stable condition.
--- NOTE | 2018-09-12 07:10 | NUR ---
BEDSIDE ROUNDS COMPLETE NO DISTRESS NOTED, UPDATED ON POC VOICED UNDERSTANDING, CO PAIN TO NECK 11/05 WILL MEDICATED WITH PRN MEDS, IVF INFUSING OT L AC 20G NO SS OF INFILTRATION NOTED, NO OTHER CO VOICED CALL LIGHT IN REACH WILL CONTINUE TO MONITOR
[2018-09-12 08:36] VITALS: BP 115/62
[2018-09-12 08:50] VITALS: BP 115/62
[2018-09-12] MEDS: ASPIRIN 81 MG ENTERIC COATED PO SCH (08:50)
[2018-09-12] MEDS: MEMANTINE 10 MG TAB PO SCH (08:50)
[2018-09-12] MEDS: OXYBUTYNIN CHLORIDE 5 MG TAB PO SCH ×2 (08:50→17:08)
[2018-09-12] MEDS: PANTOPRAZOLE SOD 40 MG TABEC PO SCH (08:50)
[2018-09-12] MEDS: GABAPENTIN 100 MG CAP PO SCH ×3 (08:50→19:54)
[2018-09-12] MEDS: CARVEDILOL 3.125 MG TAB PO SCH ×2 (08:50→17:07)
[2018-09-12] MEDS ORDERED: AMITRIPTYLINE HCL 25 MG TAB PO SCH ×2 (09:00→21:00)
[2018-09-12] MEDS: TIZANIDINE HCL 4 MG TAB PO SCH ×3 (09:00→19:54)
[2018-09-12] MEDS: DIAZEPAM 5 MG TAB PO SCH (09:20)
[2018-09-12 13:48] VITALS: BP 112/62
[2018-09-12 17:38] VITALS: BP 114/69
--- NOTE | 2018-09-12 19:23 | NUR ---
Received bedside shift report from day shift RN. Patient is laying on the bed, not in distress. Call light within reach, bed set low, side rails up x2, and wheels lock.
--- NOTE | 2018-09-12 19:23 | NUR ---
BEDSIDE SHIFT REPORT GIVEN TO ONCOMING NIGHT RN, PT IN STABLE CONDITION, DENIES ANY NEEDS OR PAIN AT THIS TIME, CALL LIGHT IN REACH
[2018-09-12 19:30] VITALS: BP 150/76
[2018-09-12] MEDS: DONEPEZIL HCL 5 MG TAB PO SCH (19:54)
[2018-09-12] MEDS: ATORVASTATIN 20 MG TAB PO SCH (19:54)
[2018-09-12 20:00] VITALS: BP 150/76
[2018-09-13] VITALS: BP 108/58
[2018-09-13] MEDS: HYDROCODONE/APAP 10MG-325MG TAB PO PRN ×4 (00:52→15:14)
[2018-09-13 04:00] VITALS: BP 131/63
--- NOTE | 2018-09-13 04:48 | NUR ---
Patient asked to remove the IV fluid stating this is the "6th bag since I got here and I don't want anymore" The patient stated she has had enough fluid and doesn't need anymore. RN removed the IV line and clamped the IV.
[2018-09-13] MEDS: SODIUM CHLORIDE 0.9% 1000ML 1,000 ML IV SCH ×2 (05:23→14:00)
--- NOTE | 2018-09-13 07:10 | NUR ---
PT ALERT RESP EVEN AND UNLABORED AT THIS TIME NO DISTRESS NOTED . PT HAS NO C/O PAIN WHEN ASKED, CALL LIGHT IN REACH.
[2018-09-13] MEDS: ASPIRIN 81 MG ENTERIC COATED PO SCH (08:44)
[2018-09-13] MEDS: OXYBUTYNIN CHLORIDE 5 MG TAB PO SCH ×2 (08:44→16:42)
[2018-09-13] MEDS: MEMANTINE 10 MG TAB PO SCH (08:44)
[2018-09-13] MEDS: GABAPENTIN 100 MG CAP PO SCH ×2 (08:44→15:14)
[2018-09-13] MEDS: PANTOPRAZOLE SOD 40 MG TABEC PO SCH (08:44)
[2018-09-13] MEDS: CARVEDILOL 3.125 MG TAB PO SCH ×2 (08:45→16:43)
[2018-09-13 09:00] VITALS: BP 126/67
[2018-09-13] MEDS: TIZANIDINE HCL 4 MG TAB PO SCH ×2 (09:00→15:00)
[2018-09-13] MEDS: DIAZEPAM 5 MG TAB PO SCH (11:04)
--- NOTE | 2018-09-13 13:29 | NUR ---
DOES NOT HAVE SNF BENEFITS
[2018-09-13 13:37] VITALS: BP 121/63
--- NOTE | 2018-09-13 14:46 | NUR ---
Received home health order. CM spoke to pt at bedside. Pt was agreeable to home health. States to use any home health company that is in network with her insurance. Choice letter signed for [facility], [facility], [facility], and [facility]. Signed letter placed in chart. Copy to pt's transition of care folder. CM informed pt that CM will send referral to first company on list and if they are unable to accept, will move on to the next one. Office phone numbers for each company was written on choice letter. CM called and spoke to Vicki with intake at [facility] and verified that they are currently taking pt's insurance. Referral was faxed.
[2018-09-13] MEDS ORDERED: LORAZEPAM1 MG PO (16:43)
[2018-09-13 17:03] VITALS: BP 133/73
--- NOTE | 2018-09-13 18:28 | NUR ---
pt discharged home with prescription, pt was educated on new medication, pt iv site removed, no swelling no redness to site catheter tip intact.
--- NOTE | 2018-09-14 04:25 | Discharge Summary ---
HISTORY OF PRESENT ILLNESS: Ms. Carrillo is a 57-year-old female, who was admitted with complaints of dizziness, which began at 4 p.m. on Wednesday evening. She also had a migraine with sensitivity to light and sound that began weeks ago. She had no contributing or alleviating factors. She denied weakness, change in vision, or difficulty swallowing. PAST MEDICAL HISTORY: Significant for GI bleed, anxiety, degenerative joint disorder, hypertension, musculoskeletal disorder, fibromyalgia, depression, anxiety, dementia, overactive bladder, and gastroesophageal reflux disease. PAST SURGICAL HISTORY: Includes right carpal tunnel and ulnar release, neck surgery twice, right knee surgery, hysterectomy, and appendectomy. FAMILY HISTORY: She has a family history of CVA in her mother and a myocardial infarction in her brother. SOCIAL HISTORY: She drinks alcohol on occasion. She smoked weed 2 days prior to admission. 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 ALLERGIES: HAS NO KNOWN ALLERGIES. ADMITTING DIAGNOSES: 1. Dizziness. 2. Headache/migraine. 3. Hypertension. 4. Dementia. 5. Fibromyalgia/musculoskeletal disorder. 6. Depression/anxiety. 7. Overactive bladder. 8. Gastroesophageal reflux disease. DISCHARGE DIAGNOSES: 1. Dizziness. 2. Migraine without aura, not intractable, with status migrainosus. 3. Ambulatory dysfunction/fibromyalgia/musculoskeletal disorder. 4. Dementia. 5. Depression/anxiety. 6. Controlled hypertension. 7. Overactive bladder. 8. Gastroesophageal reflux disease. Today on day of discharge, sodium 140, potassium 4.2, chloride 105, CO2 of 24, BUN 5, creatinine 0.73, and glucose 160. WBC 5.26, hemoglobin 12.2, hematocrit 37.6, platelets 194, and neutrophils 87.6. Magnesium 1.9. These labs were drawn on September 12. According to Dr. Bhandari's note this is with Neurology consulted on 09/11/2018, the patient described her pain is beginning over the back of the neck and radiating anteriorly to the retro-orbital region, described as pounding and rated as 9/10 on a 0-10 pain scale, associated with headache or photophobia, phonophobia, and dizziness, which is further described as a vertiginous sensation, especially with moving towards right vertiginous. The patient does not report any aura, nausea, vomiting, visual disturbance, dysarthria, aphasia, weakness, numbness, tingling, poor balance, impairment of gait, or worsening confusion associated with the headache. The patient was given normal saline IV fluids at 125 mL an hour, promethazine 25 mg IV every 6 hours x2 doses, methylprednisolone 125 mg IV every 6 hours x2 doses, valproate 500 mg IV every 6 hours x2 doses. Migraine resolved. Still has neck pain. The patient able to ambulate 150 feet with rolling walker today. Per Physical Therapy, assisted facility was recommended and an order for Case Management for assisted facility was placed yesterday. However, the patient has Medicaid insurance and does not have assisted facility benefits. Therefore, we will discharge her home with home health. Per embedded case manager note, embedded case manager called and spoke to Vicki with intake at [facility] verified that they are currently taking patient's insurance and referral was faxed. The patient states that she was given a prescription for diazepam in Dr. Miranda's office, however, has not been able to get this medication in any of the pharmacies. Case was discussed with Dr. Miranda. We will provide a prescription for lorazepam 1 mg p.o. b.i.d. p.r.n. for anxiety. No change in physical exam from yesterday. Continue cardiac diet. Activity level as tolerated. The patient to follow up with Dr. Miranda in 1 to 2 weeks. Dictated by Reggie Garay NP Ran Miranda MD HWP/MODL /[id number]
--- NOTE | 2018-09-14 11:12 | NUR ---
Received call from Mally with [facility] Staff who stated that they will be accepting pt. They will contact pt to admit.
== END 2018-09-13 18:40 | disposition home health service (06) ==
LOC: ER 13:51 → ERHOLD 17:16 → INTOOBSV 17:16 → MED/SURG 19:26
PROVIDERS: ADMIT Internal Medicine; ATTEND Internal Medicine
DX: R42 Dizziness and giddiness (principal); G43.001 Migraine without aura, not intractable, with status migrainosus; M79.7 Fibromyalgia; N32.81 Overactive bladder; I10 Essential (primary) hypertension; J44.9 Chronic obstructive pulmonary disease, unspecified; Z86.73 Personal history of transient ischemic attack (TIA), and cerebral infarction without residual deficits; F41.9 Anxiety disorder, unspecified; K21.9 Gastro-esophageal reflux disease without esophagitis; E78.5 Hyperlipidemia, unspecified; Z82.3 Family history of stroke; Z82.49 Family history of ischemic heart disease and other diseases of the circulatory system; F03.90 Unspecified dementia, unspecified severity, without behavioral disturbance, psychotic disturbance, mood disturbance, and anxiety; F32.9 Major depressive disorder, single episode, unspecified; F41.8 Other specified anxiety disorders; M19.90 Unspecified osteoarthritis, unspecified site; G89.29 Other chronic pain
CPT/HCPCS: 36415 ×3; 70450; 70551; 80048; 80053 ×2; 80307; 80320; 80329 ×2; 81001; 81025; 82550 ×2; 82553 ×2; 83735; 84484 ×2; 85025 ×3; 87086; 93005; 93306; 93880; 97116 ×2; 97139; 97162; 99284; G0378 ×4; J2405 ×2; J2550; J2930; J7030 ×3; J8597; S0164 ×3

== ENCOUNTER 2019-01-31 11:58 | Emergency (ER) | payer OTHER ==
[~2019-01-31] VITALS: Ht 167.6 cm; Wt 60.8 kg
[~2019-01-31 11:58] MED LIST changes: +AMITRIPTYLINE H25 MG PO; +ARICEPT5 MG PO; +ATORVASTATIN CA20 MG PO; +CARVEDILOL3.125 MG PO; +CETIRIZINE HCL10 MG; +LORAZEPAM1 MG PO; +NAMENDA10 MG; +PANTOPRAZOLE SO40 MG PO; +SOMA350 MG PO; +TYLENOL WITH C1 EAC1; +ULTRAM 50MG50 MG PO
[2019-01-31] MEDS ORDERED: IBUPROFEN 400 MG TAB PO STA (12:05)
[2019-01-31] MEDS ORDERED: HYDROCODONE/APAP 7.5MG-325MG 1 EA TAB PO ONE (12:15)
[2019-01-31] MEDS ORDERED: IBUPROFEN 600 MG TAB PO ONE (12:15)
--- NOTE | 2019-01-31 12:15 | NUR ---
NO ANSWER AT THIS TIME
--- NOTE | 2019-01-31 12:45 | NUR ---
NO ANSWER AT THIS TIME
== END 2019-01-31 13:26 | disposition left against medical advice (07) ==
LOC: ER 11:58
DX: Z53.21 Procedure and treatment not carried out due to patient leaving prior to being seen by health care provider (principal)

== ENCOUNTER 2020-01-03 19:11 | Emergency (ER) | payer OTHER ==
[~2020-01-03] VITALS: Ht 167.6 cm; Wt 60.8 kg
[2020-01-03] MEDS ORDERED: KETOROLAC TROMETHAMINE 30 MG/ML VIAL IV STA (19:23)
[2020-01-03 19:42] LABS: BASOPHILS # (AUTO) 0.1 (0.0-0.1); EOSINOPHILS # (AUTO) 0.2 (0.0-0.4); EOSINOPHILS % 2.9 % (0.0-6.0); HEMATOCRIT 38.9 % (34.2-44.1); HEMOGLOBIN 12.4 g/dL (12.0-16.0); LYMPHOCYTES # (AUTO) 2.4 (1.0-3.2); MEAN CORPUSCULAR HEMOGLOBIN 29.4 pg (28-32); MEAN CORPUSCULAR HGB CONC 31.9 g/dL (31-35); MEAN CORPUSCULAR VOLUME 92.2 fL (81-99); MONOCYTES # (AUTO) 0.8 (0.2-0.8); MONOCYTES % 13.2 % (4.4-11.3); NEUTROPHILS # (AUTO) 2.4 (2.1-6.9); NEUTROPHILS % 41.6 % (38.7-80.0); PLATELET COUNT 274 x10e3/uL (140-360); RED BLOOD COUNT 4.22 x10e6/uL (3.6-5.1); RED CELL DISTRIBUTION WIDTH 13.2 % (11.7-14.4)
[2020-01-03 20:00] LABS: ALANINE AMINOTRANSFERASE 27 IU/L (0-55); ALBUMIN 3.8 g/dL (3.5-5.0); ALBUMIN/GLOBULIN RATIO 1.2 (0.8-2.0); ALKALINE PHOSPHATASE 98 IU/L (40-150); ANION GAP 14.4 mmol/L (8-16); BLOOD UREA NITROGEN 13 mg/dL (7-26); BUN/CREATININE RATIO 15 (6-25); CALCIUM 9.4 mg/dL (8.4-10.2); CARBON DIOXIDE 27 mmol/L (22-29); CHLORIDE 102 mmol/L (98-107); CREATINE KINASE 60 IU/L (29-168); CREATININE, SERUM 0.87 mg/dL (0.57-1.11); EST GLOMERULAR FILTRATION RATE > 60 ML/MIN (60-); GLUCOSE 103 mg/dL (74-118); POTASSIUM 4.4 mmol/L (3.5-5.1); SODIUM 139 mmol/L (136-145)
[2020-01-03 22:24] VITALS: BP 146/78
== END 2020-01-03 22:44 | disposition home or self-care (01) ==
LOC: ER 19:20
DX: R07.89 Other chest pain (principal); M54.6 Pain in thoracic spine; I10 Essential (primary) hypertension; F03.90 Unspecified dementia, unspecified severity, without behavioral disturbance, psychotic disturbance, mood disturbance, and anxiety; E78.5 Hyperlipidemia, unspecified; J44.9 Chronic obstructive pulmonary disease, unspecified; G62.9 Polyneuropathy, unspecified; F41.9 Anxiety disorder, unspecified; K21.9 Gastro-esophageal reflux disease without esophagitis; G89.29 Other chronic pain; Z86.73 Personal history of transient ischemic attack (TIA), and cerebral infarction without residual deficits
CPT/HCPCS: 36415; 71045; 71250; 80053; 82550; 82553; 84484; 85025; 93005; 99284; J1885

== ENCOUNTER 2024-10-14 13:56 | Inpatient (IN) | payer MEDICAID, OTHER ==
[~2024-10-14] VITALS: Ht 170.2 cm; Wt 57.2 kg
[~2024-10-14 13:56] MED LIST changes: +BETAMETHASONE D15 GM TOP; +CLEOCIN HCL300 MG PO; +DOXEPIN HCL10 MG TP; +DOXYCYCLINE HY100 MG PO; +HYDROXYZINE HCL10 MG PO; +PREDNISONE10 MG PO
[2024-10-14 15:30] VITALS: TEMP 98.9
[2024-10-14] MEDS ORDERED: SODIUM CHLORIDE FLUSH 10 ML SYR IV PRN (16:00)
[2024-10-14 16:12] LABS: BASOPHILS % 1.0 % (0.0-1.0); EOSINOPHILS % 2.9 % (0.0-6.0); LYMPHOCYTES % 47.1 % (18.0-39.1); MONOCYTES % 12.6 % (4.4-11.3); NEUTROPHILS % 36.0 % (38.7-80.0); RED CELL DISTRIBUTION WIDTH 13.2 % (11.7-14.4)
[2024-10-14 16:37] LABS: EST GLOMERULAR FILTRATION RATE 92.0 ML/MIN (>=60)
[2024-10-14] MEDS ORDERED: SODIUM CHLORIDE FLUSH 10 ML SYR INJ PRN (17:15)
[2024-10-14 17:48] VITALS: PULSE 70; RESP 14
[2024-10-14] MEDS: HYDROCODONE/APAP 5MG-325MG TAB PO PRN (18:01)
[2024-10-14] MEDS: SODIUM CHLORIDE 0.9% 1000ML 1,000 ML IV ONE (18:01)
[2024-10-14] MEDS: ONDANSETRON HCL INJ 2MG/ML 2ML 2 MG/ML VIAL IV PRN (18:01)
[2024-10-14 20:00] VITALS: BP 139/67; PULSE 76; RESP 16; TEMP 97; O2SAT 95
[2024-10-15] VITALS (7 sets, daily range): BP systolic 108–136; BP diastolic 70–78; PULSE 68–80; RESP 16–21; TEMP 97.7–98.2; O2SAT 96–98
[2024-10-15] MEDS ORDERED: LORAZEPAM 1 MG TAB PO PRN (05:00)
[2024-10-15 06:53] LABS: BASOPHILS % 0.7 % (0.0-1.0); EOSINOPHILS % 3.1 % (0.0-6.0); LYMPHOCYTES % 41.6 % (18.0-39.1); MONOCYTES % 11.1 % (4.4-11.3); NEUTROPHILS % 43.0 % (38.7-80.0); RED CELL DISTRIBUTION WIDTH 12.9 % (11.7-14.4)
[2024-10-15 07:06] LABS: EST GLOMERULAR FILTRATION RATE 98.0 ML/MIN (>=60)
[2024-10-15] MEDS: CARISOPRODOL 350 MG TAB PO SCH (09:56)
[2024-10-15] MEDS: MEMANTINE 10 MG TAB PO SCH (09:56)
[2024-10-15] MEDS: TIZANIDINE HCL 4 MG TAB PO SCH (09:56)
[2024-10-15] MEDS: DIAZEPAM 5 MG TAB PO SCH (09:59)
[2024-10-15] MEDS ORDERED: ACETAMINOPHEN 325 MG TAB PO PRN (10:45)
[2024-10-15] MEDS ORDERED: HYDRALAZINE HCL 20 MG/ML VIAL IV PRN (10:45)
[2024-10-15] MEDS ORDERED: POLYETHYLENE GLYCOL 3350 17 GM PACK PO PRN (10:45)
[2024-10-15] MEDS ORDERED: ACETAMINOPHEN/CODEINE 300MG - 30MG TAB PO PRN (12:00)
[2024-10-15] MEDS: DOXEPIN HCL 10 MG CAP TP SCH (13:29)
[2024-10-15] MEDS: GABAPENTIN 100 MG CAP PO SCH (15:05)
[2024-10-15 15:39] LABS: CHOL/HDL RATIO 1.8 (3.0-3.6); LDL CHOLESTEROL 63.0 MG/DL (60-130); PHOSPHORUS 4.0 MG/DL (2.3-4.7)
[2024-10-15] MEDS: OXYBUTYNIN CHLORIDE 5 MG TAB PO SCH (17:00)
[2024-10-15] MEDS: DOCUSATE SODIUM 100 MG CAP PO SCH (17:01)
[2024-10-15] MEDS: CARVEDILOL 3.125 MG TAB PO SCH (17:01)
[2024-10-15] MEDS: DONEPEZIL HCL 5 MG TAB PO SCH (20:26)
[2024-10-15] MEDS: ATORVASTATIN 20 MG TAB PO SCH (21:00)
[2024-10-16 05:56] VITALS: BP 124/76; PULSE 86; RESP 16; TEMP 97.7; O2SAT 95
[2024-10-16 06:23] LABS: BASOPHILS % 0.6 % (0.0-1.0); EOSINOPHILS % 2.5 % (0.0-6.0); LYMPHOCYTES % 31.7 % (18.0-39.1); MONOCYTES % 11.5 % (4.4-11.3); NEUTROPHILS % 53.3 % (38.7-80.0); RED CELL DISTRIBUTION WIDTH 12.6 % (11.7-14.4)
[2024-10-16 07:01] LABS: EST GLOMERULAR FILTRATION RATE 99.0 ML/MIN (>=60)
[2024-10-16 08:00] VITALS: BP 113/79; PULSE 82; RESP 20; TEMP 99.5; O2SAT 98
[2024-10-16] MEDS: AMITRIPTYLINE HCL 25 MG TAB PO SCH (08:59)
[2024-10-16 09:00] VITALS: BP 113/79; PULSE 82; RESP 20; TEMP 99.5; O2SAT 98
[2024-10-16] MEDS: PANTOPRAZOLE SOD 40 MG TABEC PO SCH (09:01)
[2024-10-16 12:58] VITALS: BP 125/77; PULSE 83; RESP 20; TEMP 98.2; O2SAT 99
[2024-10-16 16:00] VITALS: BP 127/65; PULSE 81; RESP 19; TEMP 98.1; O2SAT 100
[2024-10-16 16:45] VITALS: BP 127/65; PULSE 81
== END 2024-10-16 18:15 | disposition home or self-care (01) | DRG 312 ==
LOC: ER 15:44 → ERHOLD 17:16 → MED/SURG2 17:45 → OBSVTOIN 10-16 09:22
PROVIDERS: ADMIT Internal Medicine; ATTEND Internal Medicine
DX: R55 Syncope and collapse (principal); Z66 Do not resuscitate; E78.5 Hyperlipidemia, unspecified; I10 Essential (primary) hypertension; J44.9 Chronic obstructive pulmonary disease, unspecified; F17.210 Nicotine dependence, cigarettes, uncomplicated; F41.9 Anxiety disorder, unspecified; F43.10 Post-traumatic stress disorder, unspecified; M47.9 Spondylosis, unspecified; M79.7 Fibromyalgia; F03.90 Unspecified dementia, unspecified severity, without behavioral disturbance, psychotic disturbance, mood disturbance, and anxiety; K21.9 Gastro-esophageal reflux disease without esophagitis; Z86.73 Personal history of transient ischemic attack (TIA), and cerebral infarction without residual deficits; Z98.1 Arthrodesis status; Z79.52 Long term (current) use of systemic steroids
CPT/HCPCS: 36415; 70450; 71045; 72125; 80053; 80061; 82550; 83036; 83735; 83880; 84100; 84439; 84443; 84484; 85025; 85379; 93005; 93306; 93880; 94760; 99284; G0378; J2405; J2470; J7030

== ENCOUNTER 2024-11-21 05:58 | Emergency (ER) | payer MEDICAID ==
[~2024-11-21] VITALS: Ht 167.6 cm; Wt 51.3 kg
[2024-11-21 06:03] VITALS: TEMP 98.4
[2024-11-21 06:31] LABS: BASOPHILS % 0.8 % (0.0-1.0); EOSINOPHILS % 2.4 % (0.0-6.0); LYMPHOCYTES % 37.8 % (18.0-39.1); MONOCYTES % 12.4 % (4.4-11.3); NEUTROPHILS % 46.2 % (38.7-80.0); RED CELL DISTRIBUTION WIDTH 12.6 % (11.7-14.4)
[2024-11-21 06:34] LABS: LEUKOCYTE ESTERASE ,URINE TRACE (NEGATIVE); PROTEIN,URINE DIPSTICK 1+ (NEGATIVE); URINE UROBILINOGEN 1 mg/dL (0.2 - 1)
[2024-11-21] MEDS: SODIUM CHLORIDE 0.9% 1000ML 1,000 ML IV STA (06:47)
[2024-11-21] MEDS: DICYCLOMINE HCL 20 MG/2 ML VIAL IM ONE (06:47)
[2024-11-21 06:52] LABS: EST GLOMERULAR FILTRATION RATE 101.0 ML/MIN (>=60)
[2024-11-21] MEDS ORDERED: IOPAMIDOL 370 MG/ML 100 ML INFUS..BTL INJ ONE (06:58)
[2024-11-21 07:26] LABS: CALCIUM OXALATE CRYSTALS,UR MODERATE (FEW); EPITHELIAL CELLS,URINE MODERATE /LPF; WBC,URINE (MAN) 21-50 /HPF (0-5)
[2024-11-21] MEDS ORDERED: DICYCLOMINE HCL20 MG PO (07:58)
[2024-11-21] MEDS ORDERED: CEFDINIR300 MG PO (07:58)
[2024-11-21 08:11] VITALS: PULSE 85; RESP 18
[2024-11-21 08:12] VITALS: BP 108/66; PULSE 85; RESP 18; O2SAT 98
== END 2024-11-21 08:16 | disposition home or self-care (01) ==
LOC: ER 06:28
DX: R10.84 Generalized abdominal pain (principal); N39.0 Urinary tract infection, site not specified; R11.2 Nausea with vomiting, unspecified; E78.5 Hyperlipidemia, unspecified; G35 Multiple sclerosis; G62.9 Polyneuropathy, unspecified; F03.90 Unspecified dementia, unspecified severity, without behavioral disturbance, psychotic disturbance, mood disturbance, and anxiety; M79.7 Fibromyalgia; F41.9 Anxiety disorder, unspecified; F32.A Depression, unspecified; M54.9 Dorsalgia, unspecified; G89.29 Other chronic pain
CPT/HCPCS: 36415; 74177; 80053; 81001; 83690; 85025; 99284; J0500; J7030; Q9967